=== PATIENT | male | born 1945 | race Two or more races ===

== ENCOUNTER 2021-05-13 07:24 | Emergency (ER) | payer OTHER ==
[~2021-05-13] VITALS: Ht 170.2 cm; Wt 81.6 kg
[2021-05-13] MEDS ORDERED: LEVOTHYROXINE25 MCG (07:31)
[2021-05-13] MEDS ORDERED: TAMS0.4C (07:31)
== END 2021-05-13 12:43 | disposition home or self-care (01) ==
LOC: ER 07:24
DX: N39.0 Urinary tract infection, site not specified (principal)